=== PATIENT | female | born 1945 | race American Indian/Alaskan Native ===

== ENCOUNTER 2017-05-13 12:51 | Emergency (ER) | payer BC ==
[~2017-05-13] VITALS: Ht 149.9 cm; Wt 65.3 kg
[~2017-05-13 12:51] MED LIST: ATENOLOL50 MG PO; CALCIUM 500 +1 EAC2 PO; ENALAPRIL-HCTZ1 EACH PO; METFORMIN HCL500 M1 PO
[2017-05-13] MEDS ORDERED: JANUVIA100 MG PO (13:04)
[2017-05-13] MEDS ORDERED: METOPROLOL SUCC50 MG PO (13:05)
[2017-05-13] MEDS ORDERED: BENICAR40 MG PO (13:06)
[2017-05-13] MEDS ORDERED: NORVASC5 MG PO (13:06)
== END 2017-05-13 13:14 | disposition home or self-care (01) ==
LOC: ED 12:51
DX: Z00.8 Encounter for other general examination (principal)

== ENCOUNTER 2019-08-26 12:55 | Emergency (ER) | payer BC, MEDICARE ==
[~2019-08-26] VITALS: Ht 149.9 cm; Wt 62.4 kg
[~2019-08-26 12:55] MED LIST changes: +AZITHROMYCIN500 MG PO; +BENICAR40 MG PO; +GLIPIZIDE ER5 MG PO; +JANUVIA100 MG PO; +LOSARTAN POTAS100 MG PO; +METFORMIN HCL1000 MG PO; +METHYLPREDNISOLO4 M1 PO; +METOPROLOL SUCC50 MG PO; +NORVASC5 MG PO
[2019-08-26] MEDS ORDERED: ONDANSETRON ODT4 MG SL (15:28)
== END 2019-08-26 15:40 | disposition home or self-care (01) ==
LOC: ED 12:55
DX: B34.9 Viral infection, unspecified (principal); R11.2 Nausea with vomiting, unspecified; I10 Essential (primary) hypertension; E11.9 Type 2 diabetes mellitus without complications; Z79.899 Other long term (current) drug therapy
CPT/HCPCS: 80053; 85025; 87502; 99284; J7030

== ENCOUNTER 2021-09-11 16:37 | Inpatient (IN) | payer BC, MEDICARE ==
[~2021-09-11] VITALS: Ht 149.9 cm; Wt 60.2 kg
[~2021-09-11 16:37] MED LIST changes: +NORCO 5-325 TA1 EACH PO; +ONDANSETRON ODT4 MG SL; +ONDANSETRON ODT8 MG PO
[2021-09-11] MEDS ORDERED: CALTRATE 600 P1 EACH PO (17:05)
--- NOTE | 2021-09-11 23:50 | NUR ---
DR. RAPHAEL NOTIFIED OF TELEPHARMACIST RECOMMENDATIONS/INTERVENTIONS ON CHANGING THE CEFAZOLIN AND FAMOTIDINE ORDER. ORDERS GIVEN TO CHANGE DOSAGE AND INTERVAL TO THOSE RECOMMENDED FROM THE TELE-PHARMACIST, WILL CONTINUE PLAN OF CARE.
--- NOTE | 2021-09-12 00:30 | NUR ---
PT ARRIVED TO THE CCU AT 2350 VIA STRETCHER AND WAS BROUGHT BY COUNSELOR DORMITORY DANDY. PT ALERT AND ORIENTED, ON ROOM AIR, LR INFUSING AT ORDERED RATE OF 200ML/HR, PERSONAL BELONGINGS AT HER SIDE. PT ABLE TO SLIDE ONTO THE CCU BED WITH MINIMAL ASSISTANCE AND IS NOW RESTING IN THE BED. VITALS TAKEN UPON ARRIVAL (SEE CHART). PT REPORTS NO PAIN, SHORTNESS OF BREATH, OR DIZZYNESS/LIGHTHEADEDNESS WHEN ASKED. PT INFORMED ON PLAN OF CARE, QUESTIONS ANSWERED. PT ASSESSED AFTERWARDS, LUNGS ARE CLEAR, CLEAR S1 S2 HEART SOUNDS, ACTIVE BOWEL TONES, NO PAIN UPON PALPATION TO THE ABDOMEN, ABDOMEN IS SOFT. RADIAL AND PEDAL PULSES STRONG, NO EDEMA PRESENT, BRISK CAPILLARY REFILL NOTED. PT IS ALERT AND ORIENTED X4. PT REPORTS NO FURTHER NEEDS AFTER ASSESSMENT AND STATES SHE WILL GO TO SLEEP. WILL CONTINUE PLAN OF CARE. CALL LIGHT IN REACH, BED IN LOWEST POSITION, IVF INFUSING ORDERED.
--- NOTE | 2021-09-12 01:55 | NUR ---
PT LAYING IN BED SLEEPING AT THIS TIME. PT RESPIRATIONS NOTED AND ARE EVEN AND UNLABORED. PT IN NO APPARENT DISTRESS AT THIS TIME AND WAS LEFT UNDISTURBED, IVF INFUSING AT ORDERED RATE, WILL CONTINUE PLAN OF CARE. CALL LIGHT IN REACH.
--- NOTE | 2021-09-12 03:20 | NUR ---
IV PUMP ALARMING, PT LAYING IN BED SLEEPING. IV ASSESSED AND IS WNL, IV FLUSHES WELL, IVF NOW INFUSING AGAIN AT ORDERED RATE. PT AWOKE DURING THIS TIME AND WAS ALERT AND ORIENTED. TEMPERATURE ASSESSED AND WAS 98.5 ORAL. ASSESSMENT COMPLETED AT THIS TIME (SEE CHART). PT DENIES HAVING ANY PAIN WHEN ASKED AND DENIES LIGHTHEADEDNESS OR DIZZYNESS. PT REPORTS NO NEEDS WHEN ASKED, WILL CONTINUE PLAN OF CARE. CALL LIGHT IN REACH, BED IN LOWEST POSITION, IVF INFUSING AT ORDERED RATE, WILL CONTINUE PLAN OF CARE.
--- NOTE | 2021-09-12 04:38 | NUR ---
IV PUMP ALARMING, BAG OF LR COMPLETE. PT LAYING IN BED SLEEPING AT THIS TIME, RESPIRATIONS EVEN AND UNLABORED, PT IN NO APPARENT DISTRESS. IV SITE ASSESSED AND IS WNL, NEW BAG OF IVF STARTED AND NOW INFUSING AT 85ML/HR ORDERED. WILL CONTINUE PLAN OF CARE.
--- NOTE | 2021-09-12 05:27 | NUR ---
MILLER DISTILLERY LEAVING THE ROOM AFTER COLLECTING PT'S LABS. PT LAYING IN BED ALERT AND ORIENTED, IVF INFUSING ORDERED. PT DENIES HAVING ANY PAIN AT THIS TIME AND DENIES FEELING DIZZY. PT ASKED IF SHE NEEDED TO VOID AND STATED YES. PT UP TO THE BATHROOM, STANDBYE ASSIST. PT ABLE TO VOID, BRUSH TEETH, AND THEN GET BACK INTO BED WITHOUT ASSISTANCE. PT DENIED HAVING ANY PAIN OR LIGHTHEADEDNESS AT THE TIME, HR INCREASED TO THE 90'S WHILE AMBULATING AND IS NOW BACK DOWN TO THE 60'S. NEW 22G IV PLACED IN THE LEFT FOREARM PER PROTOCOL. PT TOLERATED IT WELL, IV SALINE LOCKED. PT REPORTS NO FURTHER NEEDS AT THIS TIME WHEN ASKED AND IS NOW RESTING IN THE BED, CALL LIGHT IN REACH, BED IN LOWEST POSITION. WILL CONTINUE PLAN OF CARE.
--- NOTE | 2021-09-12 06:25 | NUR ---
PT BP WAS 209/83 ON THE MONITOR. PT LAYING IN BED ASLEEP AND AWOKE EASILY AND WAS ALERT AND ORIENTED. MANUAL BP TAKEN AND WAS 210/80 ON THE LEFT ARM. PT DENIES ANY PAIN, LIGHTHEADEDNESS, OR SHORTNESS OF BREATH WHEN ASKED. 10MG OF PRN LABETOLOL ADMINISTERED IV PER PARAMETERS (SEE MAR). PT NOW RESTING IN BED AT THIS TIME AND STATES SHE WILL GO BACK TO SLEEP. PT REPORTS NO FURTHER NEEDS WHEN ASKED, WILL CONTINUE PLAN OF CARE. CALL LIGHT IN REACH, BED IN LOWEST POSITION, IVF INFUSING ORDERED.
--- NOTE | 2021-09-12 08:15 | NUR ---
ASSESSMENT WAS WDL WITH THE EXCEPTION OF RUQ TENDERNESS WHEN PALPATED. BP'S STILL VERY ELEVATED, OTHER V/S WDL. PT DENIES N/V AND PAIN OVERALL.
--- NOTE | 2021-09-12 10:00 | NUR ---
PT IS CURRENTLY SITTING IN CHAIR. BP'S STILL ELEVATED. HR IN THE 50'S. WILL CONTINUE TO MONITOR.
--- NOTE | 2021-09-12 11:08 | NUR ---
MD LAW WAS JUST CALLED DUE TO RISING BP'S ONCE MORE. PT HAS RECEIVED ALL MEDS AVAILABLE AT THIS POINT. TO PUT IN ORDER TO NITRO PASTE. WILL CONTINUE TO MONITOR.
--- NOTE | 2021-09-12 12:00 | NUR ---
BP'S STILL HIGH. SBP AT 199. MD LAW AWARE. OTHERWISE V/S AND ASSESSMENT ARE WDL. PT DOES NOT HAVE ABD TENDERNESS WHEN PALPATATING ABDOMEN. PT DENIES N/V. WILL CONTINUE TO MONITOR.
--- NOTE | 2021-09-12 13:35 | NUR ---
UPON RETURNING FROM LUNCH IT WAS NOTED THAT PT BP WAS 234/113 (149). I CALLED MD LAW. I RECEIVED ORDERS TO TAKE BP MANNUALLY. PT MANNUAL BP IS 200/94. MD LAW TO PUT IN ORDER FOR FURTHER TREATMENT.
--- NOTE | 2021-09-12 14:11 | NUR ---
PT IS REPONDING VERY WELL TO NICARDIPINE DRIP. DRIP RATE AT 2.5MG/HR.
--- NOTE | 2021-09-12 16:05 | NUR ---
THIRD SHIFT ASSESSMENT WAS WDL OVERALL. PT DENIES PAIN AND N/V. NICARDIPINE DRIP AT 1MG/HR WITH SBP AT 160 AT THIS TIME. URINE OUTPUT IS WDL.
--- NOTE | 2021-09-12 16:32 | EKG ---
[facility] [address] [facility] [place], [place] [address] Signed Normal sinus rhythm with sinus arrhythmia Nonspecific ST and T wave abnormality Abnormal ECG When compared with ECG of 26-MAR-2019 10:41, No significant change was found Confirmed by LOURDES LAW DO ([id number]) on 09/12/2021 4:32:08 PM Electronically Signed By: LOURDES LAW DO 09/12/21 1632 PATIENT NAME: IVAN GUERRERO Electrocardiogram DATE OF : 47 PHYSICIAN: LOURDES LAW DO REPORT #: [id number] REPORT IS CONFIDENTIAL AND NOT TO BE RELEASED WITHOUT AUTHORIZATION
--- NOTE | 2021-09-12 17:38 | NUR ---
PT SO FAR REMAINS ON 1MG/HR NICARDIPINE DRIP AND DOING WELL WITH THAT DOSE. SBP'S 150-160'S SO FAR. OVERALL NO NEW CONCERNS HAVE BEEN NOTED. OTHER V/S WDL, URINE OUTPUT IS WDL.
--- NOTE | 2021-09-12 17:45 | NUR ---
Medications reconciled
--- NOTE | 2021-09-12 19:30 | NUR ---
REPORT RECEIVED FROM LAWRENCE RN, PT LAYING IN BED AT THIS TIME ALERT AND ORIENTED, IV LR INFUSING AT ORDERED RATE OF 85ML/HR. NICARDIPINE DRIP INFUSING AT 1MG/HR. PT REPORTS NO PAIN, DIZZYNESS, OR LIGHTHEADEDNESS WHEN ASKED. PT REPORTS NO FURTHER NEEDS AT THIS TIME WHEN ASKED, WILL CONTINUE PLAN OF CARE. CALL LIGHT IN REACH, BED IN LOWEST POSITION.
--- NOTE | 2021-09-12 20:07 | NUR ---
PT LAYING IN BED, IVF AND IV NICARDIPINE INFUSING AT PREVIOUS RATES. PT ALERT AND ORIENTED X4 AND DENIES HAVING ANY PAIN OR LIGHTHEADEDNESS. PT VITALS TAKEN AND SCHEDULED MEDICATION ADMINISTERED (SEE MAR). PT THEN ASSESSED. LUNGS ARE CLEAR THROUGHOUT, PT DENIES SHORTNESS OF BREATH, CLEAR S1 S2 HEART SOUNDS HEARD, BOWEL TONES ACTIVE, PT ABDOMEN SOFT AND IS NOT PAINFUL WHEN PALPATED. RADIAL AND PEDAL PULSES STRONG, PT DENIES NUMBNESS OR TINGLING TO EXTREMITIES. PT PROVIDED WITH ICE WATER AFTERWARDS. PT REPORTS NO FURTHER NEEDS WHEN ASKED. CALL LIGHT IN REACH, BED IN LOWEST POSITION, WILL CONTINUE PLAN OF CARE.
--- NOTE | 2021-09-12 21:42 | NUR ---
PT LAYING IN BED ALERT AND ORIENTED WATCHING TV AT THIS TIME. VITALS TAKEN AND CBG ASSESSED (SEE CHART). SCHEDULED MEDICATIONS ADMINISTERED, 1 UNIT OF INSULIN ADMINISTERED PER SLIDING SCALE (SEE MAR). PT UP TO THE BATHROOM TO VOID AFTERWARDS, VOID UNMEASURED, CONTAINER PLACED AFTERWARDS TO MEASURE NEXT VOIDS. PT HR INCREASED TO THE 90'S WHILE AMBULATING BUT DENIED ANY LIGHTHEADEDNESS, DIZZYNESS, PAIN, OR SHORTNESS OF BREATH. PT NOW BACK IN BED RESTING. IVF STILL INFUSING AT ORDERED RATE, NICARDIPINE STILL INFUSING AT 1MG/HR. PT REPORTS NO FURTHER NEEDS AFTERWARDS AND IS NOW RESTING IN BED WATCHING TV. CALL LIGHT IN REACH, BED IN LOWEST POSITION, WILL CONTINUE PLAN OF CARE.
--- NOTE | 2021-09-12 22:08 | NUR ---
PT LAYING IN BED AWAKE AT THIS TIME, IV NICARDIPINE AND IVF INFUSING AT PREVIOUS RATES. PT DENIES HAVING ANY PAIN OR LIGHTHEADEDNESS AT THIS TIME. NICARDIPINE DRIP TITRATED DOWN TO 0.5MG/HR. PT REPORTS NO FURTHER NEEDS WHEN ASKED, WILL CONTINUE PLAN OF CARE. CALL LIGHT IN REACH, BED IN LOWEST POSITION.
--- NOTE | 2021-09-12 22:30 | NUR ---
PT LAYING IN BED SLEEPING. NICARDIPINE DRIP INFUSING AT 0.5 MG/HR, IV LR INFUSING 85ML/HR. DRIP TITRATED OFF AT THIS TIME, BP 126/80 (94), HR 56 (SEE CHART/NOV). PT REPORTS NO FURTHER NEEDS WHEN ASKED AT THIS TIME AND RETURNED BACK TO SLEEP, WILL CONTINUE PLAN OF CARE. CALL LIGHT IN REACH, BED IN LOWEST POSITION.
--- NOTE | 2021-09-12 23:10 | NUR ---
PT SLEEPING AT THIS TIME, LAYING IN BED, LR INFUSING AT ORDERED RATE. PT AWOKE AND WAS ALERT AND ORIENTED, VITALS TAKEN AT THIS TIME (SEE CHART). PT THEN ASSESSED (SEE NABOR). PT DENIES HAVING ANY ABDOMINAL PAIN/DISCOMFORT WHEN ASKED AND DENIES HAVING ANY PAIN ELSEWHERE. PT REPORTS NO SHORTNESS OF BREATH OR LIGHTHEADEDNESS WHEN ASKED. PT REPORTS NO FURTHER NEEDS WHEN ASKED AND RETURNED BACKT TO SLEEP, WILL CONTINUE PLAN OF CARE. CALL LIGHT IN REACH, BED IN LOWEST POSITION.
--- NOTE | 2021-09-13 00:20 | NUR ---
PT LAYING IN BED SLEEPING AT THIS TIME. PT AWOKE EASILY AT THIS TIME AND WAS ALERT AND ORIENTED. PT DENIES HAVING ANY PAIN AND REPORTS NO LIGHTHEADEDNESS OR DIZZYNESS WHEN ASKED. PT STOOD UP AT THE SIDE OF THE BED TO STRETCH, HR NOTED TO BE IN THE 70'S. PT DENIED ANY LIGHTHEADEDNESS/DIZZYNESS WHILE STANDING. PT NOW BACK IN BED AND STATES SHE WILL RETURN TO SLEEP, CALL LIGHT IN REACH, BED IN LOWEST POSITION, IVF INFUSING ORDERED, WILL CONTINUE PLAN OF CARE.
--- NOTE | 2021-09-13 01:53 | NUR ---
PT LAYING IN BED SLEEPING AT THIS TIME. RESPIRATIONS ARE EVEN AND UNLABORED, PT IN NO APPARENT DISTRESS AND WAS LEFT UNDISTURBED. CALL LIGHT IN REACH, IVF INFUSING, WILL CONTINUE PLAN OF CARE.
--- NOTE | 2021-09-13 02:36 | NUR ---
PT LAYING IN BED AWAKE AND ALERT AT THIS TIME, IVF INFUSING ORDERED. PT REPORTS NO PAIN OR LIGHTHEADEDNESS WHEN ASKED. PT REPORTS NO FURTHER NEEDS WHEN ASKED, WILL CONTINUE PLAN OF CARE. CALL LIGHT IN REACH.
--- NOTE | 2021-09-13 03:57 | NUR ---
IV PUMP ALARMING, IV SITE WNL, SITE FLUSHED AND IVF NOW INFUSING AT ORDERED RATE. PT LAYING IN BED AWAKE AT THIS TIME. VITALS TAKEN (SEE CHART). PT STATED SHE NEEDED TO VOID, PT ABLE TO STAND UP AND WALK TO THE BATHROOM, VOID, AND WALK BACK AND SIT ON THE BEDSIDE RECLINER. PT DENIES ANY PAIN, LIGHTHEADEDNESS, OR DIZZYNES BOTH AT REST AND WHEN AMBULATING. PT PARTIALLY MISSED THE CONTAINER/HAT TO MEASURE THE URINE IN THE TOILET, 200ML OF CLEAR YELLOW URINE PRESENT IN CONTAINER. PT ASSESSED AFTER SITTING IN RECLINER (SEE CHART). PT REPORTS NO FURTHER NEEDS AND STATES SHE IS GOING TO WATCH TV AT THIS TIME AND SIT ON THE RECLINER. WILL CONTINUE PLAN OF CARE. IVF INFUSING, CALL LIGHT WITHIN REACH.
--- NOTE | 2021-09-13 05:38 | NUR ---
PT LAYING IN BED AWAKE AND ALERT AT THIS TIME WATCHING TV, IVF INFUSING ORDERED. PT DENIES HAVING ANY PAIN, LIGHTHEADEDNESS, OR SHORTNESS OF BREATH. PT REPORTS NO FURTHER NEEDS AT THIS TIME WHEN ASKED AND REMAINS IN BED RESTING. WILL CONTINUE PLAN OF CARE. CALL LIGHT IN REACH, BED IN LOWEST POSITION, IVF INFUSING ORDERED.
--- NOTE | 2021-09-13 06:20 | NUR ---
PT LAYING IN BED SLEEPING AT THIS TIME. NEW BAG OF LR STARTED AND NOW INFUSING AT 85ML/HR. PT RESPIRATIONS NOTED AND ARE EVEN AND UNLABORED, PT IN NO APPARENT DISTRESS AND WAS LEFT UNDISTURBED, WILL CONTINUE PLAN OF CARE. CALL LIGHT IN REACH, BED IN LOWEST POSITION.
--- NOTE | 2021-09-13 07:25 | NUR ---
Report recieved, care of Pt assumed at this time.
--- NOTE | 2021-09-13 07:40 | NUR ---
PT awake in room, standing at bedside cleaning off bedside table. pt alert and oriented, denies pain or discomfort. Steady on feet. heart rate remained within normal limits while ambulating in room. Assessment completed at this time. Call light within reach. Will continue to monitor.
--- NOTE | 2021-09-13 08:02 | NUR ---
Medication administration completed. Plan of care for day established with PT. All questions answered. PT up in chair, IV fluids infusing, call light within reach. Will continue to monitor.
--- NOTE | 2021-09-13 09:00 | NUR ---
OVER TO UNTI TO ASSESS PATIENT. PATING IN SHOWER AT THIS TIME IN PREPERATION TO GO TO THE OR LATER THIS AFTERNOON. WILL ATTEMPT TO ASSESS PATIENT PRIOR TO SURGERY.
--- NOTE | 2021-09-13 09:39 | NUR ---
PT UPDATED ON PLAN TO HAVE SURGERY THIS AFTERNOON. ALL QUESTIONS ANSWERED. PT SITTING IN CHAIR. IV ABX FINISHED INFUSING AND CONTINOUS FLUIDS INFUSING. CALL LIGHT WITHIN REACH. WILL CONTINUE TO MONITOR.
--- NOTE | 2021-09-13 10:30 | NUR ---
Pt arrives to med surg floor ambulatory with all belongings in hand. She is in good spirits and states no pain. Assessment complete. Pt currently saline locked per report. On low fat diet, lunch ordered.
--- NOTE | 2021-09-13 12:15 | NUR ---
SS insulin provided with meal. Pt resting in bed and states no needs, no pain.
--- NOTE | 2021-09-13 13:00 | NUR ---
IVF infusing at 75ml/hr. Pt resting and states no needs, A+O, call light in reach.
--- NOTE | 2021-09-13 15:15 | NUR ---
In room to assist patient with ordering dinner. Pt resting in bed on room air, IVF infusing WNL. No needs at this time, call light in reach.
--- NOTE | 2021-09-13 17:00 | NUR ---
CBG checked, insulin SS provided, pt SBA to BR to void. Dinner provided. No further needs
--- NOTE | 2021-09-13 17:30 | HP ---
[facility] [address], [place] [address] Signed ADMISSION DATE: 09/11/2021 REASON FOR ADMISSION: Biliary colic with elevated liver enzymes, severe hypertension. HISTORY: This 75-year-old [place] woman presented to the emergency room earlier in the day today, initially evaluated by Dr. Naik at approximately 5:40 p.m. Her initial complaint was that of epigastric pain. It is noted from review of the records in 2019 she had a similar presentation as well as significant hypertension. She was noted to have gallstones at that time and hypertension as well and underwent medical treatment for that. She did not thereafter present for biliary disease nor with cholecystectomy performed. I have known from the past including 2008 from colonoscopy and the episode additionally on March 26, 2019, at which time, she was found to be free of her biliary symptoms. She had undergone a CAT scan as well. Her evaluation today by Dr. Naik and subsequently, Dr. Mclaughlin confirmed her abdominal pain, which had begun yesterday was resolving over time. She had no associated nausea, vomiting, or diarrhea. By the time I was called this evening, her pain had largely resolved. The gallbladder ultrasound was performed, which showed no change based on prior ultrasound showing gallstones with gallbladder sludge and mild distention of the gallbladder without significant wall thickening. Lab studies, however, were significant for elevated liver enzymes with an AST of 100, a total bilirubin of 2.6, ALT of 192, and alkaline phosphatase of 257. Lipase was elevated also at 214, therefore suggestive of biliary pancreatitis. Upper level normal of lipase in this lab, however, is 393, and therefore, less likely to be pancreatitis proper. Notably, her vital signs through the course of her evaluation today have shown increasing blood pressure. Her presentation blood pressure is 223/78, decreased, but now increasing more and most recently seen by me as 214/114 without symptoms of headache, visual loss, or chest pain. PAST MEDICAL HISTORY: Notable for hypertension and diabetes mellitus. CURRENT MEDICATIONS: Include only glipizide ER. She also describes medicine of losartan 100 mg p.o. daily and metoprolol 50 mg daily. She takes a Citracal tablet daily. Electronically Signed By: ANTELMO RAPHAEL MD 09/13/21 1730 PATIENT NAME: IVAN GUERRERO HISTORY AND PHYSICAL DATE OF : 47 REPORT #: [id number] PHYSICIAN: ANTELMO RAPHAEL MD PCP: FERMIN CARABALLO DO REPORT IS CONFIDENTIAL AND NOT TO BE RELEASED WITHOUT AUTHORIZATION [facility] [address], [place] [address] Signed SURGICAL HISTORY: Includes x2. Other medical issues include history of diverticulosis noted on colonoscopy. The patient uses alcohol occasionally, denies any illicit drug use and has never smoked. REVIEW OF SYSTEMS: She denies any chest pain or shortness of breath. She has had mild epigastric pain, which brought her to the hospital today. She feels that it is largely resolved at this time. PHYSICAL EXAMINATION: GENERAL: A very pleasant, engaging [place] woman, who is alert and oriented. Does not show signs of toxicity. VITAL SIGNS: Blood pressure is 237/114 on most recent evaluation I see. Pulse is 98. NECK: Shows no thyromegaly or cervical adenopathy. Trachea is midline. CHEST: Clear. HEART: Regular without murmur. ABDOMEN: Obese, but soft. There is minimal tenderness in the right subcostal area. EXTREMITIES: Lower extremities show no clubbing, cyanosis, or edema. The weight is noted to be 60.9 kg (134 pounds). BMI is 27.1. ASSESSMENT AND PLAN: The patient has symptoms that are suggestive of recurrent biliary colic and is noted to have gallstones and gallbladder sludge as well as elevated liver enzymes. 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 A sign of such problems includes hyperglycemia. Her particular glucose at this time is 233, I am uncertain of her baseline usual. I initially had anticipated she would undergo cholecystectomy tomorrow, but given her extreme hypertension that will certainly need to be controlled prior to that. She will be placed in the intensive care unit for that purpose. I have consulted Dr. Elias, the hospitalist director educational radio, who will help attend to this issue. Antelmo Raphael MD Electronically Signed By: ANTELMO RAPHAEL MD 09/13/21 1730 PATIENT NAME: IVAN GUERRERO HISTORY AND PHYSICAL DATE OF : 47 REPORT #: [id number] PHYSICIAN: ANTELMO RAPHAEL MD PCP: FERMIN CARABALLO DO REPORT IS CONFIDENTIAL AND NOT TO BE RELEASED WITHOUT AUTHORIZATION [address] [address] Signed VICENTE/KATHRYN /[id number] cc: Dr. Jada Caraballo Copies: ~ Electronically Signed By: ANTELMO RAPHAEL MD 09/13/21 1730 PATIENT NAME: IVAN GUERRERO HISTORY AND PHYSICAL DATE OF : 47 REPORT #: [id number] PHYSICIAN: ANTELMO RAPHAEL MD PCP: FERMIN CARABALLO DO REPORT IS CONFIDENTIAL AND NOT TO BE RELEASED WITHOUT AUTHORIZATION
--- NOTE | 2021-09-13 18:06 | NUR ---
PT AWAKE IN BED CHATTING WITH FRIEND AT BEDSIDE. CALL LIGHT WITHIN REACH. NO FURTHER NEEDS AT THIS TIME.
--- NOTE | 2021-09-13 19:45 | NUR ---
IN TO SEE PT. PT ALERT AND OREITNED X 3. PLEASANT. HAND OFF REPORT RECIEVED. BAKARI GIVEN PER REQUEST. NO OTHER NEEDS OR REQUESTS. CALL LIGHT IN REACH.
--- NOTE | 2021-09-13 20:45 | NUR ---
THIS RN TO ASSUME CARE OF PATIENT. REPORT RECEIVED. PT LYING IN BED ALERT AND ORIENTED. IVF INFUSING WNL. ICE WATER PROVIDED. NO FURTHER NEEDS.
--- NOTE | 2021-09-13 22:15 | NUR ---
EVENING ASSESSMENT COMPLETE. SCHEDULED MEDS ADMINISTERED PER EMAR. PT DENIES PAIN OR NAUSEA. IVF INFUSING WNL. ABD SOFT AND NON DISTENDED. BOWEL TONES ACTIVE. FRESH WATER PROVIDED. PT DENIES QUESTIONS OR CONCERNS. CALL LIGHT IN REACH.
--- NOTE | 2021-09-14 00:20 | NUR ---
PT RESTING ON RIGHT SIDE. EYES CLOSED. RESPIRATIONS EVEN. PT NPO AT THIS TIME. IVF INFUSING WNL. CALL LIGHT IN REACH.
--- NOTE | 2021-09-14 03:02 | NUR ---
PT RESTING IN BED WITH EYES CLOSED. IV PUMP ALARMING. NEW BAG IVF INFUSING ORDERED. 400 ML YELLOW URINE EMPTIED. NO NEEDS AT THIS TIME. CALL LIGHT IN REACH.
--- NOTE | 2021-09-14 04:09 | NUR ---
PT UP INDEPENDENT TO AMB MULTIIPLE TIMES AROUND NURSING UNIT. GAIT STEADY. PT DENIES PAIN OR NAUSEA. REMAINS NPO. DENIES NEEDS AT THIS TIME.
--- NOTE | 2021-09-14 04:52 | NUR ---
PT IN BED AWAKE WATCHING TV. VS AND I&O COMPLETE. ASSESSMENT COMPLETE. PT DENIES PAIN OR NAUSEA. NO NEEDS AT THIS TIME. CALL LIGHT IN REACH.
--- NOTE | 2021-09-14 07:05 | NUR ---
Received report from Kaylin JACOBS. Pt resting in bed with eyes closed, respirations even and unlabored, no needs identified at this time. IVF infusing WNL. On 3L NC O2. Will continue plan of care. call light in reach
--- NOTE | 2021-09-14 07:36 | NUR ---
Received report from Kaylin JACOBS. Pt resting in bed with eyes closed, respirations even and unlabored, no needs identified at this time. IVF infusing WNL. Will continue plan of care. call light in reach
--- NOTE | 2021-09-14 09:15 | NUR ---
Scheduled medications administered and assessment complete. Pt resting in bed, A+O, VSS. in good spirits and states no pain or needs at this time. SN Berenice in room to assist administering meds. IVF infusing WNL.
--- NOTE | 2021-09-14 10:00 | NUR ---
IV ABX completed, pt states no needs, NPO at this time. IVF infusing WNL.
--- NOTE | 2021-09-14 13:36 | NUR ---
Pt up walking in hallway with IV pole, IND. She states that she has no pain or needs, "is hungry", updated on plan of care, no further needs
--- NOTE | 2021-09-14 15:00 | NUR ---
Spoke with Martín, she states she lives in [facility] in a 1 story home with 1 step. Does not use any DME. 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 Denies needs. Son will be here tomorrow from [place]. Friend Libby will pick her up if needed.
--- NOTE | 2021-09-14 16:30 | NUR ---
Received call from pts son. He is quite upset with pts pcp. Would like her Dr. baeza. Informed I cannot do this, but pt can call and change if she desires. He states he is the POA and would like the changed. Asked if he wants to change offices or just to a new Dr. He would like to stay with the physician clinic. Gave him the phone number for the clinic and let him know to call and request a change in physician. He will do this.
--- NOTE | 2021-09-14 17:07 | NUR ---
PT AWAKE IN BED. PT IS EXPRESSING FRUSTRATION WITH WAITING FOR SURGERY AND STILL BEING NPO. WARM BLANKET GIVEN. CALL LIGHT IN REACH. NO FURTHER NEEDS AT THIS TIME
--- NOTE | 2021-09-14 17:32 | NUR ---
Pt states that she is anxious regarding surgery, would like update, sat with patient for approx 20 minutes and discussed patient's feelings and updated. IVF infusing WNL. Pt NPO. Pt receives phone call from friend as this RN exits
--- NOTE | 2021-09-14 19:25 | NUR ---
ADVISED PT SURGERY WILL BE TOMORROW AND THAT WE WILL GET HER FOOD.
--- NOTE | 2021-09-14 19:37 | NUR ---
BROUGHT PT WATER, TOLD HER WE ARE GETTING HER SOMETHING TO EAT. PT DENIES FURTHER NEEDS, CALL LIGHT IS CLOSE.
--- NOTE | 2021-09-14 19:38 | NUR ---
IN ROOM FOR REPORT, PT IS ASKING ABOUT SURGERY TIME WITH VISITOR IN THE ROOM. WILL LET HER KNOW SOON WE KNOW. SHE DENIES FURTHER NEEDS. CALL LIGHT IS CLOSE.
--- NOTE | 2021-09-14 22:07 | NUR ---
IN ROOM TO ASSESS PT AND ADMINISTER MEDICATIONS. PT DENIES PAIN AND NAUSEA AT THIS TIME. PT STATES DR RAPHAEL WAS JUST IN TO TALK TO HER ABOUT SURGERY TOMORROW. PT IS GOING TO GO FOR A WALK IN THE [facility] AT THIS TIME. SHE DENIES FUTHER NEEDS.
--- NOTE | 2021-09-14 23:34 | NUR ---
PT IS AMBULATING IN THE [place] AT THIS TIME. SHE DENIES NEEDS.
--- NOTE | 2021-09-15 02:14 | NUR ---
CHECKED ON PT, SHE WAS AWAKE IN BED. PT STATES SHE WANTS TO GO FOR A WALK. CHECKED PT'S L FOREARM IV AND SWELLING IS INCREASING. TURNED IV OFF TO SWITCH TO OTHER IV SITE. PT IS GOING TO AMBULATE IN [place] FIRST WITHOUT IV POLE.
--- NOTE | 2021-09-15 02:29 | NUR ---
REMOVED IV FROM PT'S L FOREARM, PT TOLERATED WELL, CATH TIP INTACT, GAUZE AND COBAN APPLIED. IV IS NOW INFUSING IN R AC. PT DENIES FURTHER NEEDS. CALL LIGHT IS CLOSE.
--- NOTE | 2021-09-15 03:54 | NUR ---
PT IS AMBULATING IN THE [place] AT THIS TIME WITH IV POLE. SHE DENIES NEEDS.
--- NOTE | 2021-09-15 04:26 | NUR ---
IN ROOM TO HANG NEW BAG OF LR. TALKED WITH PT ABOUT TAKING A HIBACLENS SHOWER. SL PT'S IV. ROMY SHEIKH IN ROOM TO WRAP IV AND GET PT READY FOR SHOWER. SHE DENIES FURTHER NEEDS.
--- NOTE | 2021-09-15 04:37 | NUR ---
THIS HOSPITAL SCIENTIST WRAPPED PATIENT'S IV SITE. FRESH GOWN, SOCKS, TOWELS AND HIBICLENS PROVIDED. BED LINEN CHANGED. PATIENT SHOWER INDEPENDENTLY.
--- NOTE | 2021-09-15 07:30 | NUR ---
SURGERY RN ON MED/SURG UNIT TO TRANSPORT PATIENT TO SURGERY DEPT AT THIS TIME.
--- NOTE | 2021-09-15 09:50 | NUR ---
09/15/21 0950 Kindra Mckeon 0480-PATIENT ARRIVED TO PACU ON 6L MASK RR EVEN NONAROUSABLE. IVF INFUSING. SR. 3 LAP SITES TO ABDOMEN CDI KIRILL DRAIN TO RLQ.
--- NOTE | 2021-09-15 10:30 | NUR ---
PT BACK FROM SURGERY AT THIS TIME, MASSIEL JACOBS PACU GAVE BEDSIDE REPORT. PT IS DROWSY, ALERT TO NAME. WHEN ASKED IF SHE HAD PAIN SHE SAID, "NO, I AM COMFORTABLE" V/S STABLE AT THIS TIME. PT ON ROOM.
--- NOTE | 2021-09-15 11:59 | NUR ---
PT REPORTS PAIN 5/10 AT HER ABD, PT ADMINISTERED 2MG IV MORPHINE PRN AT THIS TIME.
--- NOTE | 2021-09-15 13:09 | NUR ---
INFORMED PT HAS BEEN TAKEN TO OR FOR SURGERY. WILL FOLLOW NEEDED
--- NOTE | 2021-09-15 14:33 | NUR ---
pt reports she does not feel like trying to eat yet, she said she does not feel like she needs to use the bathroom, she said she is willing to try in a little while. she said "i have pain" 6/10 at her abd. pt is still moderatly drowsy, administered 2mg iv morphine prn at this time. will monitor closely.
--- NOTE | 2021-09-15 15:30 | NUR ---
bedside report from Carolina rn. pt denies needs, i/o done, alison with 10 ml of serous drainage, 3x scope sites. wnl. amb to br with carolina and voided well.
--- NOTE | 2021-09-15 15:48 | NUR ---
pt up to bedside commode, voided 600ml urine, toelrated well, with increased pain verbalized. 3mg iv morphine administered at this time.
--- NOTE | 2021-09-15 16:25 | NUR ---
pt toll po jello - no po meds ordered. attemptimg to ask dr conteh for po med orders no answer in pacu, cell or home - will continue to try. for now Iv meds are controlling pain.
--- NOTE | 2021-09-15 16:45 | NUR ---
Spoke briefly with Martín. She is very drowsy, states she still has some pain. Will see her tomorrow.
--- NOTE | 2021-09-15 17:21 | NUR ---
PT AWAKE EATING REG DIET, DENIES NEEDS.
--- NOTE | 2021-09-15 18:05 | NUR ---
dr conteh updated on pt progress - ordered po meds dc ms. pt hob up eating.
--- NOTE | 2021-09-15 18:35 | NUR ---
pt awake visiting with friend. c/0 gas pain - po tylenol give with sm amt mary monreal. vitals taken wnl. hot water to pt to sip for comfort - toll reg po diet.
--- NOTE | 2021-09-15 19:30 | NUR ---
RECEIVED REPORT, PT IS AWAKE IN BED. SHE FEEL BLOATED. PINNED KIRILL DRAIN TO GOWN AND ASSISTED HER TO THE RESTROOM. SHE IS GOING FOR A WALK IN THE [place] RIGHT NOW WITH KORI AMAYA.
--- NOTE | 2021-09-15 19:45 | NUR ---
ASSISTED PT WITH [facility] IN [place], PT BACK TO BED, CPOX AND SCDS IN PLACE, NO FUTHER NEEDS
--- NOTE | 2021-09-15 20:39 | NUR ---
IN ROOM TO ASSESS PT AND ADMINISTER MEDICATIONS. PT STATES 5/10 PAIN IS TOLERABLE AND DENIES NEED FOR PAIN MEDS AT THIS TIME. SHE IS GOING FOR A WALK IN THE [place] AGAIN. AND WILL EAT A SANDWICH WHEN SHE RETURNS TO THE ROOM. CALL LIGHT IS CLOSE AND PT DENIES SOB/DIZZINESS AND IS MOVING WELL.
--- NOTE | 2021-09-15 21:50 | NUR ---
PT IN BED, IV INFUSING, PER MARS, CPOX PLACED. LIGHTS OUT, CALL LIGHT WITHIN REACH. NO OTHER NEEDS AT THIS TIME.
--- NOTE | 2021-09-15 23:00 | NUR ---
IN ROOM TO ADMINISTER ANCEF, PT IS NOW RESTING WITH EYES CLOSED. RR IS EVEN AND UNLABORED. CALL LIGHT IS CLOSE.
--- NOTE | 2021-09-16 00:06 | NUR ---
PT IS RESTING WITH EYES CLOSED RR IS EVEN AND UNLABOED. IV IS INFUSING FINE AND CALL LIGHT IS CLOSE.
--- NOTE | 2021-09-16 02:10 | NUR ---
IN TO GET VITALS, PT DOES NOT FEEL LIKR SHE NEEDS TO USE THE RESTROOM AT THIS TIME
--- NOTE | 2021-09-16 02:26 | NUR ---
IN ROOM TO CHECK ON PT. SHE DENIES PAIN AT THIS TIME SAYING IT IS 0/10. SHE DOES FEEL BLOATED AND HAS WALKED 2 TIMES DURING THIS SHIFT. IV IS INFUSING FINE AND SCDS ARE IN PLACE. LAP SITES ARE UNCHANGED AND KIRILL DRAIN HAS NOT PUT MUCH OUT SINCE LAST EMPTIED. PT DENIES NEEDS AT THIS TIME. CALL LIGHT IS CLOSE.
--- NOTE | 2021-09-16 04:48 | NUR ---
AFTER PT AMBULATED IN [place] AGAIN AND WAS UP TO USE THE RESTROOM SHE REPORTED HER PAIN INCREASED TO 5/10. TALKED W/PT ABOUT PAIN MED OPTIONS. SHE WANTED TO TRY 1 PERCOCET BECAUSE SHE FEELS THE PAIN MORE AND DOES NOT WANT TO HURT TO MUCH TO GET UP AND MOVE AROUND MORE. KIRILL DRAIN EMPTIED OF 12MLS. PT DENIES FURTHER NEEDS. CALL LIGHT IS CLOSE AND IV IS INFUSING FINE.
--- NOTE | 2021-09-16 05:08 | NUR ---
PT HAD A GOOD NIGHT, SHE SLEPT ON/OFF. PT DENIED PAIN THROUGH THE NIGHT. SHE AMBULATED IN THE [place] 3-4 TIME. THIS AM AFTER LAST AMBULATION HER PAIN INCREASED. ADMINISTERED 1 PERCOCET PER ORDERS. PT IS VOIDING QS URINE. PT WAS ON CPOX THROUGH THE NIGHT WITH SCDS ON. 3 LAP SITES HAVE DRIED DRAINAGE NOTED AND KIRILL PUT OUT 22MLS THROUGH THE ROASTER SUPERVISOR. TODAY IS PT'S BIRTHDAY AND SHE HOPES TO GO HOME.
--- NOTE | 2021-09-16 05:22 | NUR ---
IV PUMP WAS BEEPING, IT IS NOW INFUSING FINE. CALL LIGHT IS CLOSE AND PT DENIES FURTHER NEEDS.
--- NOTE | 2021-09-16 06:35 | NUR ---
PT IS RESTING WITH EYES CLOSED, RR IS EVEN AND UNLABORED. IV PUMP WAS BEEPING BUT IT IS NOW INFUSING FINE. CALL LIGHT IS CLOSE.
--- NOTE | 2021-09-16 07:10 | NUR ---
bedside report from Ramila rn, pt eyes closed, call light in reach - today is her birthday!! pain control well last night - amb 4 times and voided well per report.
--- NOTE | 2021-09-16 10:13 | NUR ---
PT AWAKE WATCHING TV EATING MEAL - REG DIET WELL. IV ABX FUSING R AC
--- NOTE | 2021-09-16 11:11 | NUR ---
rn consulted pharmacist in charge and pharmacy for adjusted meds from this am. will wait for changes in pyxis.
--- NOTE | 2021-09-16 12:42 | NUR ---
DR RAPHAEL HERE - REMOVED KIRILL DRAIN - PLAN DC
[2021-09-16] MEDS ORDERED: AMLODIPINE BESY10 MG PO (12:49)
[2021-09-16] MEDS ORDERED: DOXAZOSIN MESYLA1 MG PO (12:49)
[2021-09-16] MEDS ORDERED: METOPROLOL TART25 MG PO (12:49)
[2021-09-16] MEDS ORDERED: LOSARTAN POTASS50 MG PO (12:50)
[2021-09-16] MEDS ORDERED: ACETAMINOPHEN500 MG PO (12:50)
[2021-09-16] MEDS ORDERED: OXYCODON-ACETA1 EAC2 PO (12:50)
--- NOTE | 2021-09-16 12:50 | NUR ---
Spoke with pt. She plans on dc to home. Discussed with pt I did not change her physician as requested by son. She states she has discussed with him and is not ready to change Drs. Plans on dc when her son arrives from [place].
--- NOTE | 2021-09-16 12:58 | NUR ---
IV BOLUS STARTED FOR DR. LAW, PT EATING LUNCH.
--- NOTE | 2021-09-18 15:47 | OR ---
[facility] [address], [place] [address] Signed DATE OF OPERATION: 09/15/2021 SURGEON: Antelmo Raphael MD PREOPERATIVE DIAGNOSES: 1. Chronic calculous cholecystitis, recent acute episode, cholecystitis. 2. Severe hypertension (now controlled). POSTOPERATIVE DIAGNOSES: 1. Chronic calculous cholecystitis, recent acute episode, cholecystitis. 2. Severe hypertension (now controlled). PROCEDURE: 1. Laparoscopic cholecystectomy with intraoperative cholangiogram. 2. Surgeon-directed fluoroscopy. ANESTHESIA: General endotracheal, Murtaza Jenny, MORPHOLOGY TEACHER and local 10 mL of 0.25% Marcaine with epinephrine. INDICATION: This 75-year-old Pakistani [place] woman was admitted to the hospital by fl on September 11, 2021, having presented to the emergency room with severe epigastric pain and elevated liver enzymes including bilirubin. Upon admission, she was noted to have severe hypertension with systolic blood pressure of 234, diastolic of about 118. She has had issues of blood pressure control problems in the past and had a similar presentation to the hospital in 2019, but never followed through with cholecystectomy as her symptoms had abated. She has been admitted to the hospital by me since September 11 and consulted on by Dr. Elias and her hypertension is now under good control. Her liver enzymes have improved and essentially near normal and her symptoms of cholecystitis appears to have resolved. She is admitted to the operating room at this time to undergo cholecystectomy as planned. She understands the risks of bleeding, infection, bile duct injury need for open procedure, need for common duct exploration and so on. FINDINGS: The gallbladder was chronically inflamed and obviously had recent acute inflammation. Distortion in the infundibulum was noted and was related to a prominent common bile duct and common hepatic duct which were bowed out towards the gallbladder. Indeed, the Electronically Signed By: ANTELMO RAPHAEL MD 09/18/21 1547 PATIENT NAME: IVAN GUERRERO OPERATIVE REPORT DATE OF : 47 REPORT #: [id number] PHYSICIAN: ANTELMO RAPHAEL MD PCP: FERMIN CARABALLO DO REPORT IS CONFIDENTIAL AND NOT TO BE RELEASED WITHOUT AUTHORIZATION [facility] [address], [place] [address] Signed cystic duct and the final analysis was rather short. The cholangiogram showed free flow of contrast into the biliary tree and into the duodenum. Angulation changes on cholangiogram were such that I saw no obvious filling defects and no impediment to flow of bile. The cystic duct was well controlled. A drain was placed nevertheless at the conclusion of the procedure. DESCRIPTION OF PROCEDURE: The patient was brought to the operating room, given a general endotracheal anesthetic. She had a fair amount of debris in her umbilicus, which was cleansed thoroughly. The abdomen was prepared with a chlorhexidine solution and draped sterilely. An infraumbilical incision was made and using an open Carole cannula technique pneumoperitoneum was achieved to a level of 14 mmHg of carbon dioxide gas. Intra-abdominal inspection showed no sign of ascites or carcinomatosis. Gallbladder was quite obviously recently inflamed, had a somewhat bile-stained color. The liver was normal. Three additional trocars were placed in usual configuration in the subxiphoid, right midclavicular, and right anterior axillary line. The gallbladder was elevated cephalad and found to have such distention of bile that decompression was required. This was accomplished with a needle trocar device. The puncture site was grasped and the gallbladder elevated cephalad. In the infundibular area, there appeared to be a fullness suggestive of a segmented type gallbladder. Dissection was maintained high in the gallbladder ultimately identifying that the prominent portion was actually the common bile duct and common hepatic duct which had draped over the infundibulum. This was meticulously dissected free ultimately identifying the cystic duct which in the final analysis was rather short. Once well identified, however, the clip was applied across gallbladder cystic duct junction and transverse choledochotomy made in the cystic duct. It was noted that decompression of the gallbladder previously showed dark thick green black bile. Cholangiogram was performed and given the anatomic features, the Baumann type cholangiocatheter device was overlying the cystic duct and various angles were used to better visualize the common bile duct. Good flow of contrast into the duodenum was noted and retrograde flow noted as well. Ultimately, a good view of the entire biliary tree was noted. There appeared to be no common duct stones that were certain. Three clips were applied across the cystic duct and the cystic duct was transected and dissection undertaken. As the gallbladder was elevated, some small amount of bleeding was noted in the posterior wall of the gallbladder for which the clips were applied with good effect ultimately. The gallbladder was ultimately excised, placed in an endobag and extracted through the infraumbilical port site without problem. Reinspection of subhepatic space showed no sign of bile leak or bleeding. Tisseel was applied to the hepatic bed. Given the extent of dissection and through a right-sided trocar, a drain was placed, not in the subhepatic space but anterior to it somewhat. Electronically Signed By: ANTELMO RAPHAEL MD 09/18/21 1547 PATIENT NAME: IVAN GUERRERO JOEL OPERATIVE REPORT DATE OF : 47 REPORT #: [id number] PHYSICIAN: ANTELMO RAPHAEL MD PCP: FERMIN CARABALLO DO REPORT IS CONFIDENTIAL AND NOT TO BE RELEASED WITHOUT AUTHORIZATION [facility] [address] [place], [place] [address] Signed The trocars were removed under direct visualization showing no sign of bleeding. The infraumbilical fascial incision was reapproximated with interrupted 0 Vicryl suture. A 10 mL of 0.25% Marcaine with epinephrine was injected locally. The skin was then closed with interrupted 3-0 Vicryl. Steri-Strips were applied. She was ultimately extubated and transferred to the recovery room in good condition having suffered no complications. Sponge, needle, and instrument counts were reported as correct x3. MD VICENTE Santana/KALL /[id number] cc: DO Zeferino Dong MD Dr. Larson Copies: FERMIN CARABALLO BRIAN DO ~ Electronically Signed By: ANTELMO RAPHAEL MD 09/18/21 1547 PATIENT NAME: IVAN GUERRERO OPERATIVE REPORT DATE OF : 47 REPORT #: [id number] PHYSICIAN: ANTELMO RAPHAEL MD PCP: FERMIN CARABALLO DO REPORT IS CONFIDENTIAL AND NOT TO BE RELEASED WITHOUT AUTHORIZATION
--- NOTE | 2021-09-18 15:47 | DS ---
[facility] [address], [place] [address] Signed ADMISSION DATE: 09/11/2021 DISCHARGE DATE: 09/16/2021 REASON FOR ADMISSION: 1. Acute calculous cholecystitis. 2. Coincidental severe hypertension. HISTORY OF PRESENT ILLNESS: This 76-year-old [place] Citizen [place] woman works at the [employer] and presented to the emergency room at approximately 05:40 p.m. on September 11, 2021, with severe epigastric pain. She had a similar presentation in 2019, at which time she was found to have gallstones and significant hypertension. She did not follow through with a plan for elective cholecystectomy. Her evaluation upon her current presentation included gallbladder ultrasound, which showed gallbladder sludge and mild distention without significant wall thickening. Her liver enzymes were elevated including AST of 100, total bilirubin of 2.6, ALT of 192, and alkaline phosphatase of 257; lipase was 214, still within normal. She was admitted for further evaluation and care for acute calculous cholecystitis. Notably, however, she had coincidental finding of hypertension with blood pressure of 223/78, and subsequent 214/114, that significant comorbidity was another reason for admission. PERTINENT PHYSICAL EXAMINATION: GENERAL: A relatively small, but slightly obese Maltese woman, who is alert and oriented. VITAL SIGNS: Blood pressure 237/114 and pulse 98. NECK: Normal. CHEST: Clear. HEART: Regular, without murmur. ABDOMEN: Obese and soft. Minimal tenderness in right subcostal area. There is no mass. BMI is 27.1. HOSPITAL COURSE: Given her clinical findings of significant hypertension and despite without symptoms of headache, etc., I did admit her directly to the Intensive Care Unit. Consultation was undertaken with Dr. Lourdes Elias, hospitalist. Initiation of an antihypertensive regimen was undertaken, which was surprisingly difficult to accomplish a good blood pressure control initially. Ultimately, with several oral agents she was able to have stable normal blood pressure. Electronically Signed By: ANTELMO RAPHAEL MD 09/18/21 1547 PATIENT NAME: IVAN GUERRERO DISCHARGE SUMMARY DATE OF : 47 REPORT #: [id number] PHYSICIAN: ANTELMO RAPHAEL MD PCP: FRANK CARABALLO DO REPORT IS CONFIDENTIAL AND NOT TO BE RELEASED WITHOUT AUTHORIZATION [facility] [address], [place] [address] Signed Her biliary symptoms largely resolved; however, liver enzymes though improving, were still somewhat abnormal. On September 15, 2021, she underwent laparoscopic cholecystectomy with intraoperative cholangiogram. She was found to have chronic calculous cholecystitis. The cholangiogram was normal. A drain was placed. Postoperatively she did quite well. She had no recurrence of her abdominal symptoms and her blood pressure remained under good control. The drain was placed showed no sign of bile leak and was removed prior to discharge. She was discharged home in good and improved condition. DISCHARGE MEDICATIONS: 1. Doxazosin 1 mg p.o. at bedtime, #90. 2. Metoprolol 25 mg p.o. b.i.d., #90. 3. Amlodipine 10 mg p.o. daily, #90. 4. Losartan 100 mg p.o. daily, #90. 5. Percocet 7.5/325 one to two p.o. q.6 hours p.r.n. pain, #10. 6. Tylenol plain 1000 mg p.o. q.6 hours as needed for left hip pain. She will continue her usual medications including metoprolol 50 mg p.o. daily, glipizide 5 mg p.o. before meals, calcium carbonate with vitamin D3 one p.o. daily. She will discontinue hydrocodone and Zofran that she had at the time of admission. DISCHARGE DIAGNOSES: 1. Recurrent acute calculous cholecystitis. 2. Severe hypertension, now controlled. FOLLOWUP PLAN: She is return to see me in approximately 4 weeks. She is to walk and stand, avoid lifting more than 20 pounds for two weeks. A work return slip was written for her to return on October 03, 2021 per her request. MD VICENTE Santana/MODL /[id number] Electronically Signed By: ANTELMO RAPHAEL MD 09/18/21 1547 PATIENT NAME: IVAN GUERRERO DISCHARGE SUMMARY DATE OF : 47 REPORT #: [id number] PHYSICIAN: ANTELMO RAPHAEL MD PCP: FRANK CARABALLO DO REPORT IS CONFIDENTIAL AND NOT TO BE RELEASED WITHOUT AUTHORIZATION [address] [address] Signed cc: MD Frank Zelaya DO Copies: LOURDES ELIAS ARIAN DO ~ Electronically Signed By: ANTELMO RAPHAEL MD 09/18/21 1547 PATIENT NAME: IVAN GUERRERO DISCHARGE SUMMARY DATE OF : 47 REPORT #: [id number] PHYSICIAN: ANTELMO RAPHAEL MD PCP: FRANK CARABALLO DO REPORT IS CONFIDENTIAL AND NOT TO BE RELEASED WITHOUT AUTHORIZATION
== END 2021-09-16 15:00 | disposition home or self-care (01) | DRG 418 ==
LOC: ED 16:37 → MS 16:39 → CCU 22:51 → MS 22:51 → CCU 22:51 → MS 22:57 → CCU 22:57 → MS 09-13 11:00
PROVIDERS: ADMIT Surgery; ATTEND Surgery
PROC: BF14YZZ Fluoroscopy of Gallbladder, Bile Ducts and Pancreatic Ducts using Other Contrast (ICD-10-PCS; 2021-09-15)
PROC: 0FT44ZZ Resection of Gallbladder, Percutaneous Endoscopic Approach (ICD-10-PCS; principal; 2021-09-15 08:30)
DX: K80.12 Calculus of gallbladder with acute and chronic cholecystitis without obstruction (principal); N17.9 Acute kidney failure, unspecified; I10 Essential (primary) hypertension; Z79.84 Long term (current) use of oral hypoglycemic drugs; E11.9 Type 2 diabetes mellitus without complications; Z20.822 Contact with and (suspected) exposure to COVID-19; Z79.899 Other long term (current) drug therapy; I16.0 Hypertensive urgency; E66.9 Obesity, unspecified; Z98.890 Other specified postprocedural states; Z68.27 Body mass index [BMI] 27.0-27.9, adult; E86.0 Dehydration
CPT/HCPCS: 00790; 74300; 76705; 80048; 80053; 83690; 83735; 85025; 88304; 93005; 93010; 99285-25; C9803; J0690; J1100; J1644; J1815; J1885; J2001; J2250; J2270; J2704; J3010; J7060; J7121; Q9967; U0003